=== PATIENT | male | born 2000 | race African-American/Black ===

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

== ENCOUNTER → 2023-04-07 | Emergency (ER) | payer OTHER, SELFPAY ==
[~2023-04-07] MED LIST: ACETAMINOPHEN 325 MG TABLET ONE
--- OUTSIDE RECORDS SUMMARY | 2023-04-07 16:35 | XMS REPORT | Continuity of Care Document ---
Author Name Unknown Address [address] [facility] [address] [place] [address] [facility] Address [address] [facility] [address] [place] [address] Care Team Providers Care Lunchroom Mother Name Role Phone DARREN DOHERTY Primary Care Physician Unavail able RADIOLOGY Attending Clinician Unavailable Radiology Attending Clinician Unavailable NITHYA NELSON Attending Clinician Unavaila Nithya Williamson Attending Clinician [phone] Doctor Unassigned, [place] Attending Clinician U navailable Only, Ang Db Test Attending Clinician Unavailabl e Debbie Fuller Attending Clinician DEBBIE NICHOLS Attending Clinician Unavailable KRISTOFER GALAN Attending Clinician Unavailable Kristofer Sierra Attending Clinician [phone] Howard Her MD Attending Clinician [phone] JOIE OTOOLE Admitting Clinician Unavailable Payers Payer Name Policy Type Policy Number Effective Date Expirati on Date Source [facility] [id number] 2022 00:00:00 [facility] PL[facility] [id number] 2021 00:00:00 Problems Condition Name Condition Details Condition Category Status Onset Date Resolution Date Last Treatment Date Treating Clinician Comments Source 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 Added automatic ally from request for surgery [id number] [facility] Attention deficit hyperactiv ity disorder (ADHD) Attention deficit hyperactiv ity disorder (ADHD) Disease Active 2012-03 00:00: 00 Overview: Formattin g of this note might be different from the original. ICD10 Diagnosis Term [employer] [facility] Sickle cell trait Sickle cell trait Disease Active 12-13 00:00: 00 Overview: Formattin g of this note might be different from the original. NBS with Hgb A, F and S [facility] Thrombocyt openia Thrombocyt openia Disease Active 12-06 00:00: 00 Overview: Formattin g of this note might be different from the original. ICD10 Diagnosis Term [employer] Utility [facility] Thrombocyt openia Thrombocyt openia Disease Active 12-06 00:00: 00 Overview: Formattin g of this note might be different from the original. ICD10 Diagnosis Term [employer] Utility [facility] Allergic rhinitis Allergic rhinitis Disease [facility] 07-28 00:00: 00 Overview: Formattin g of this note might be different from the original. ICD10 Diagnosis Term [employer] Utility [facility] Asthma Asthma Disease [facility] 07-28 00:00: 00 Overview: Formattin g of this note might be different from the original. ICD10 Diagnosis Term [employer] Utility [facility] Contact dermatitis and eczema Contact dermatitis and eczema Disease [facility] 07-28 00:00: 00 Overview: Formattin g of this note might be different from the original. ICD10 Diagnosis Term [employer] Utility [facility] Allergies, Adverse Reactions, Alerts Allergy Name Allergy Type Status Severity Reaction(s) Onset Date Inactive Date Treating Clinician Comments Source NO KNOWN ALLERGIE S Drug Class Active [facility] Social History Social Habit Start Date Stop Date Quantity Comments Source Exposure to SARS-CoV-2 (event) 2022-01-03 00:00:00 2022-01-13 19:51:00 Not sure [facility] Alcohol intake 2019-10-22 00:00:00 2019-10-22 00:00:00 Current non-drinker of alcohol (finding) [facility] Tobacco Comment 2012-07-28 00:00:00 2012-07-28 00:00:00 No smoke exposure [facility] Tobacco use and exposure 2012-07-28 00:00:00 2012-07-28 00:00:00 Smokeless tobacco non-user [facility] Sex Assigned At 2000 00:00:00 2000 00:00:00 [facility] Smoking Status Start Date Stop Date Source Never smoked tobacco [facility] Medications Ordered Medication Name Filled Medication Name Start Date Stop Date Current Medication? Ordering Clinician Indication Dosage Frequency Signature (SIG) Comments Components Source acetaminoph en (TYLENOL) tablet 650 mg 2021-03 01:45: 00 01-14 01:02 :00 No 650mg 650 mg, Oral, ONCE, 1 dose, On Tue01/13/22 at 2045, KAVON [facility] methylpheni date (CONCERTA) 36 mg 24 hr tablet 04-27 00:00: 00 Yes 36mg Take 1 Tab by mouth every morning. [facility] methylpheni date (CONCERTA) 36 mg 24 hr tablet 04-27 00:00: 00 Yes 36mg Take 1 Tab by mouth every morning. [facility] methylpheni date (CONCERTA) 36 mg 24 hr tablet 04-27 00:00: 00 Yes 36mg Take 1 Tab by mouth every morning. [facility] methylpheni date (CONCERTA) 36 mg 24 hr tablet 04-27 00:00: 00 Yes 36mg Take 1 Tab by mouth every morning. [facility] methylpheni date (CONCERTA) 36 mg 24 hr tablet 04-27 00:00: 00 Yes 36mg Take 1 Tab by mouth every morning. [facility] methylpheni date (CONCERTA) 36 mg 24 hr tablet 04-27 00:00: 00 Yes 36mg Take 1 Tab by mouth every morning. [facility] methylpheni date (CONCERTA) 36 mg 24 hr tablet 04-27 00:00: 00 Yes 36mg Take 1 Tab by mouth every morning. [facility] methylpheni date (CONCERTA) 36 mg 24 hr tablet 04-27 00:00: 00 Yes 36mg Take 1 Tab by mouth every morning. [facility] methylpheni date (CONCERTA) 36 mg 24 hr tablet 04-27 00:00: 00 Yes 36mg Take 1 Tab by mouth every morning. [facility] methylpheni date (CONCERTA) 36 mg 24 hr tablet 04-27 00:00: 00 Yes 36mg Take 1 Tab by mouth every morning. [facility] methylpheni date (CONCERTA) 36 mg 24 hr tablet 04-27 00:00: 00 Yes 36mg Take 1 Tab by mouth every morning. [facility] methylpheni date (CONCERTA) 36 mg 24 hr tablet 04-27 00:00: 00 Yes 36mg Take 1 Tab by mouth every morning. [facility] methylpheni date (CONCERTA) 36 mg 24 hr tablet 04-27 00:00: 00 Yes 36mg Take 1 Tab by mouth every morning. [facility] methylpheni date (CONCERTA) 36 mg 24 hr tablet 2012-03 00:00: 00 Yes 36mg Take 1 Tab by mouth every morning. [facility] methylpheni date (CONCERTA) 36 mg 24 hr tablet 2012-03 00:00: 00 Yes 36mg Take 1 Tab by mouth every morning. [facility] methylpheni date (CONCERTA) 36 mg 24 hr tablet 2012-03 00:00: 00 Yes 36mg Take 1 Tab by mouth every morning. [facility] methylpheni date (CONCERTA) 36 mg 24 hr tablet 2012-03 00:00: 00 Yes 36mg Take 1 Tab by mouth every morning. [facility] methylpheni date (CONCERTA) 36 mg 24 hr tablet 2012-03 00:00: 00 Yes 36mg Take 1 Tab by mouth every morning. [facility] methylpheni date (CONCERTA) 36 mg 24 hr tablet 2012-03 00:00: 00 Yes 36mg Take 1 Tab by mouth every morning. [facility] methylpheni date (CONCERTA) 36 mg 24 hr tablet 2012-03 00:00: 00 Yes 36mg Take 1 Tab by mouth every morning. [facility] methylpheni date (CONCERTA) 36 mg 24 hr tablet 2012-03 00:00: 00 Yes 36mg Take 1 Tab by mouth every morning. [facility] methylpheni date (CONCERTA) 36 mg 24 hr tablet 2012-03 00:00: 00 Yes 36mg Take 1 Tab by mouth every morning. [facility] methylpheni date (CONCERTA) 36 mg 24 hr tablet 2012-03 00:00: 00 Yes 36mg Take 1 Tab by mouth every morning. [facility] methylpheni date (CONCERTA) 36 mg 24 hr tablet 2012-03 00:00: 00 Yes 36mg Take 1 Tab by mouth every morning. [facility] methylpheni date (CONCERTA) 36 mg 24 hr tablet 2012-03 00:00: 00 Yes 36mg Take 1 Tab by mouth every morning. [facility] methylpheni date (CONCERTA) 36 mg 24 hr tablet 2012-03 00:00: 00 Yes 36mg Take 1 Tab by mouth every morning. [facility] loratadine (CLARITIN) 10 mg tablet 2012-03 00:00: 00 Yes [id number] 10mg Take 1 Tab by mouth daily. [facility] albuterol (PROAIR HFA) 90 mcg/actuati on inhaler 2012-03 00:00: 00 Yes 2 puffs po q 4-6 hours prn cough, wheeze or shortness of breath. Use with spacer device [facility] hydrocortis one valerate (WESTCORT) 0.2 % ointment 2012-03 00:00: 00 Yes [id number] Apply to eczema bid prn [facility] Guanfacine (INTUNIV) 1 mg Tb24 2012-03 00:00: 00 Yes One po q hs 30 min prior to bed[facility] 10 mg tablet 2012-03 00:00: 00 Yes [id number] 10mg Take 1 Tab by mouth daily. [facility]PRO[facility]IR HFA) 90 mcg/actuati on inhaler 2012-03 00:00: 00 Yes 2 puffs po q 4-6 hours prn cough, wheeze or shortness of breath. Use with spacer device [facility] hydrocortis one valerate (WESTCORT) 0.2 % ointment 2012-03 00:00: 00 Yes [id number] Apply to eczema bid prn [facility] Gu[facility] (INTUNIV) 1 mg Tb24 2012-03 00:00: 00 Yes One po q hs 30 min prior to bedtime [facility] loratadine (CLARITIN) 10 mg tablet 2012-03 00:00: 00 Yes [id number] 10mg Take 1 Tab by mouth daily. [facility] albuterol (PROAIR HFA) 90 mcg/actuati on inhaler 2012-03 00:00: 00 Yes 2 puffs po q 4-6 hours prn cough, wheeze or shortness of breath. Use with spacer device [facility] hydrocortis one valerate (WESTCORT) 0.2 % ointment 2012-03 00:00: 00 Yes [id number] Apply to eczema bid prn [facility] Guanfacine (INTUNIV) 1 mg Tb24 2012-03 00:00: 00 Yes One po q hs 30 min prior to bedtime [facility] loratadine (CLARITIN) 10 mg tablet 2012-03 00:00: 00 Yes [id number] 10mg Take 1 Tab by mouth daily. [facility] (PRO[facility]IR HFA) 90 mcg/actuati on inhaler 2012-03 00:00: 00 Yes 2 puffs po q 4-6 hours prn cough, wheeze or shortness of breath. Use with spacer device [facility] hydrocortis one valerate (WESTCORT) 0.2 % ointment 2012-03 00:00: 00 Yes [id number] Apply to eczema bid prn [facility] Guanfacine (INTUNIV) 1 mg Tb24 2012-03 00:00: 00 Yes One po q hs 30 min prior to bedtime [facility] ([facility]AR[facility]IN) 10 mg tablet 2012-03 00:00: 00 Yes [id number] 10mg Take 1 Tab by mouth daily. [facility] albuterol (PROAIR HFA) 90 mcg/actuati on inhaler 2012-03 00:00: 00 Yes 2 puffs po q 4-6 hours prn cough, wheeze or shortness of breath. Use with spacer device [facility] hydrocortis one valerate (WESTCORT) 0.2 % ointment 2012-03 00:00: 00 Yes [id number] Apply to eczema bid prn [facility] Guanfacine (INTUNIV) 1 mg Tb24 2012-03 00:00: 00 Yes One po q hs 30 min prior to bedtime [facility] loratadine (CLARITIN) 10 mg tablet 2012-03 00:00: 00 Yes [id number] 10mg Take 1 Tab by mouth daily. [facility] albuterol (PROAIR HFA) 90 mcg/actuati on inhaler 2012-03 00:00: 00 Yes 2 puffs po q 4-6 hours prn cough, wheeze or shortness of breath. Use with spacer device [facility] hydrocortis one valerate (WESTCORT) 0.2 % ointment 2012-03 00:00: 00 Yes [id number] Apply to eczema bid prn [facility] Guanfacine (INTUNIV) 1 mg Tb24 2012-03 00:00: 00 Yes One po q hs 30 min prior to bedtime [facility] loratadine (CLARITIN) 10 mg tablet 2012-03 00:00: 00 Yes [id number] 10mg Take 1 Tab by mouth daily. [facility] albuterol (PROAIR HFA) 90 mcg/actuati on inhaler 2012-03 00:00: 00 Yes 2 puffs po q 4-6 hours prn cough, wheeze or shortness of breath. Use with spacer device [facility] hydrocortis one valerate (WESTCORT) 0.2 % ointment 2012-03 00:00: 00 Yes [id number] Apply to eczema bid prn [facility] Guanfacine (INTUNIV) 1 mg Tb24 2012-03 00:00: 00 Yes One po q hs 30 min prior to bedtime [facility] loratadine (CLARITIN) 10 mg tablet 2012-03 00:00: 00 Yes [id number] 10mg Take 1 Tab by mouth daily. [facility] albuterol (PROAIR HFA) 90 mcg/actuati on inhaler 2012-03 00:00: 00 Yes 2 puffs po q 4-6 hours prn cough, wheeze or shortness of breath. Use with spacer device [facility] hydrocortis one valerate (WESTCORT) 0.2 % ointment 2012-03 00:00: 00 Yes [id number] Apply to eczema bid prn [facility] Guanfacine (INTUNIV) 1 mg Tb24 2012-03 00:00: 00 Yes One po q hs 30 min prior to bedtime [facility] loratadine (CLARITIN) 10 mg tablet 2012-03 00:00: 00 Yes [id number] 10mg Take 1 Tab by mouth daily. [facility] albuterol (PROAIR HFA) 90 mcg/actuati on inhaler 2012-03 00:00: 00 Yes 2 puffs po q 4-6 hours prn cough, wheeze or shortness of breath. Use with spacer device [facility] hydrocortis one valerate (WESTCORT) 0.2 % ointment 2012-03 00:00: 00 Yes [id number] Apply to eczema bid prn [facility] Guanfacine (INTUNIV) 1 mg Tb24 2012-03 00:00: 00 Yes One po q hs 30 min prior to bedtime [facility] loratadine (CLARITIN) 10 mg tablet 2012-03 00:00: 00 Yes [id number] 10mg Take 1 Tab by mouth daily. [facility] albuterol (PROAIR HFA) 90 mcg/actuati on inhaler 2012-03 00:00: 00 Yes 2 puffs po q 4-6 hours prn cough, wheeze or shortness of breath. Use with spacer device [facility] hydrocortis one valerate (WESTCORT) 0.2 % ointment 2012-03 00:00: 00 Yes [id number] Apply to eczema bid prn [facility] Guanfacine (INTUNIV) 1 mg 24 2012-03 00:00: 00 Yes One po q hs 30 min prior to bedtime [facility] loratadine (CLARITIN) 10 mg tablet 2012-03 00:00: 00 Yes [id number] 10mg Take 1 Tab by mouth daily. [facility] albuterol (PROAIR HFA) 90 mcg/actuati on inhaler 2012-03 00:00: 00 Yes 2 puffs po q 4-6 hours prn cough, wheeze or shortness of breath. Use with spacer device [facility] hydrocortis one valerate (WESTCORT) 0.2 % ointment 2012-03 00:00: 00 Yes [id number] Apply to eczema bid prn [facility] Guanfacine (INTUNIV) 1 mg Tb24 2012-03 00:00: 00 Yes One po q hs 30 min prior to bedtime [facility] loratadine (CLARITIN) 10 mg tablet 2012-03 00:00: 00 Yes [id number] 10mg Take 1 Tab by mouth daily. [facility] albuterol (PROAIR HFA) 90 mcg/actuati on inhaler 2012-03 00:00: 00 Yes 2 puffs po q 4-6 hours prn cough, wheeze or shortness of breath. Use with spacer device [facility] hydrocortis one valerate (WESTCORT) 0.2 % ointment 2012-03 00:00: 00 Yes [id number] Apply to eczema bid prn [facility] Guanfacine (INTUNIV) 1 mg Tb24 2012-03 00:00: 00 Yes One po q hs 30 min prior to bedtime [facility] loratadine (CLARITIN) 10 mg tablet 2012-03 00:00: 00 Yes [id number] 10mg Take 1 Tab by mouth daily. [facility] albuterol (PROAIR HFA) 90 mcg/actuati on inhaler 2012-03 00:00: 00 Yes 2 puffs po q 4-6 hours prn cough, wheeze or shortness of breath. Use with spacer device [facility] hydrocortis one valerate (WESTCORT) 0.2 % ointment 2012-03 00:00: 00 Yes [id number] Apply to eczema bid prn [facility] Guanfacine (INTUNIV) 1 mg Tb24 2012-03 00:00: 00 Yes One po q hs 30 min prior to bedtime [facility] Guanfacine (INTUNIV) 1 mg Tb24 11-24 00:00: 00 Yes [id number] One po q hs 30 min prior to bedtime [facility] Guanfacine (INTUNIV) 1 mg Tb24 11-24 00:00: 00 Yes [id number] One po q hs 30 min prior to bedtime [facility] Guanfacine (INTUNIV) 1 mg Tb24 11-24 00:00: 00 Yes [id number] One po q hs 30 min prior to bedtime [facility] Guanfacine (INTUNIV) 1 mg Tb24 11-24 00:00: 00 Yes [id number] One po q hs 30 min prior to bedtime [facility]y [facility] Guanfacine (INTUNIV) 1 mg Tb24 11-24 00:00: 00 Yes [id number] One po q hs 30 min prior to bedtime [facility] Guanfacine (INTUNIV) 1 mg Tb24 11-24 00:00: 00 Yes [id number] One po q hs 30 min prior to bedtime [facility] Guanfacine (INTUNIV) 1 mg Tb24 11-24 00:00: 00 Yes [id number] One po q hs 30 min prior to bedtime [facility] Guanfacine (INTUNIV) 1 mg Tb24 11-24 00:00: 00 Yes [id number] One po q hs 30 min prior to bedtime [facility] Guanfacine (INTUNIV) 1 mg Tb24 11-24 00:00: 00 Yes [id number] One po q hs 30 min prior to bedtime [facility] Guanfacine (INTUNIV) 1 mg Tb24 11-24 00:00: 00 Yes [id number] One po q hs 30 min prior to bedtime [facility] Guanfacine (INTUNIV) 1 mg Tb24 11-24 00:00: 00 Yes [id number] One po q hs 30 min prior to bedtime [facility] Guanfacine (INTUNIV) 1 mg Tb24 11-24 00:00: 00 Yes [id number] One po q hs 30 min prior to bedtime [facility] Guanfacine (INTUNIV) 1 mg Tb24 11-24 00:00: 00 Yes [id number] One po q hs 30 min prior to bedtime [facility] hydrocortis one valerate (WESTCORT) 0.2 % ointment 07-31 00:00: 00 Yes [id number] Use on eczema bid prn [facility] albuterol (VENTOLIN) 90 mcg/actuati on inhaler 07-31 00:00: 00 Yes 2 puffs po q 4 hours prn cough/whee ze [facility] loratadine (CLARITIN) 10 mg tablet 07-31 00:00: 00 Yes [id number] One po q day prn nasal allergies [facility] hydrocortis one valerate (WESTCORT) 0.2 % ointment 07-31 00:00: 00 Yes [id number] Use on eczema bid prn [facility] albuterol (VENTOLIN) 90 mcg/actuati on inhaler 07-31 00:00: 00 Yes 2 puffs po q 4 hours prn cough/whee ze [facility] loratadine (CLARITIN) 10 mg tablet 07-31 00:00: 00 Yes [id number] One po q day prn nasal allergies [facility] hydrocortis one valerate (WESTCORT) 0.2 % ointment 07-31 00:00: 00 Yes [id number] Use on eczema bid prn [facility] albuterol (VENTOLIN) 90 mcg/actuati on inhaler 07-31 00:00: 00 Yes 2 puffs po q 4 hours prn cough/whee ze [facility]IN) 10 mg tablet 07-31 00:00: 00 Yes [id number] One po q day prn nasal allergies [facility] hydrocortis one valerate (WESTCORT) 0.2 % ointment 07-31 00:00: 00 Yes [id number] Use on eczema bid prn [facility] albuterol (VENTOLIN) 90 mcg/actuati on inhaler 07-31 00:00: 00 Yes 2 puffs po q 4 hours prn cough/whee ze [facility] loratadine (CLARITIN) 10 mg tablet 07-31 00:00: 00 Yes [id number] One po q day prn nasal allergies [facility] hydrocortis one valerate (WESTCORT) 0.2 % ointment 07-31 00:00: 00 Yes [id number] Use on eczema bid prn [facility] albuterol (VENTOLIN) 90 mcg/actuati on inhaler 07-31 00:00: 00 Yes 2 puffs po q 4 hours prn cough/whee ze [facility] loratadine (CLARITIN) 10 mg tablet 07-31 00:00: 00 Yes [id number] One po q day prn nasal allergies [facility] hydrocortis one valerate (WESTCORT) 0.2 % ointment 07-31 00:00: 00 Yes [id number] Use on eczema bid prn [facility] albuterol (VENTOLIN) 90 mcg/actuati on inhaler 07-31 00:00: 00 Yes 2 puffs po q 4 hours prn cough/whee ze [facility] loratadine (CLARITIN) 10 mg tablet 07-31 00:00: 00 Yes [id number] One po q day prn nasal allergies [facility] hydrocortis one valerate (WESTCORT) 0.2 % ointment 07-31 00:00: 00 Yes [id number] Use on eczema bid prn [facility] albuterol (VENTOLIN) 90 mcg/actuati on inhaler 07-31 00:00: 00 Yes 2 puffs po q 4 hours prn cough/whee ze [facility] loratadine (CLARITIN) 10 mg tablet 07-31 00:00: 00 Yes [id number] One po q day prn nasal allergies [facility] hydrocortis one valerate (WESTCORT) 0.2 % ointment 07-31 00:00: 00 Yes [id number] Use on eczema bid prn [facility] albuterol (VENTOLIN) 90 mcg/actuati on inhaler 07-31 00:00: 00 Yes 2 puffs po q 4 hours prn cough/whee ze [facility] loratadine (CLARITIN) 10 mg tablet 07-31 00:00: 00 Yes [id number] One po q day prn nasal allergies [facility] hydrocortis one valerate (WESTCORT) 0.2 % ointment 07-31 00:00: 00 Yes [id number] Use on eczema bid prn [facility] albuterol (VENTOLIN) 90 mcg/actuati on inhaler 07-31 00:00: 00 Yes 2 puffs po q 4 hours prn cough/whee ze [facility] loratadine (CLARITIN) 10 mg tablet 07-31 00:00: 00 Yes [id number] One po q day prn nasal allergies [facility] hydrocortis one valerate (WESTCORT) 0.2 % ointment 07-31 00:00: 00 Yes [id number] Use on eczema bid prn [facility] albuterol (VENTOLIN) 90 mcg/actuati on inhaler 07-31 00:00: 00 Yes 2 puffs po q 4 hours prn cough/whee ze [facility] loratadine (CLARITIN) 10 mg tablet 07-31 00:00: 00 Yes [id number] One po q day prn nasal allergies [facility] hydrocortis one valerate (WESTCORT) 0.2 % ointment 07-31 00:00: 00 Yes [id number] Use on eczema bid prn [facility] albuterol (VENTOLIN) 90 mcg/actuati on inhaler 07-31 00:00: 00 Yes 2 puffs po q 4 hours prn cough/whee ze [facility] loratadine (CLARITIN) 10 mg tablet 07-31 00:00: 00 Yes [id number] One po q day prn nasal allergies [facility] hydrocortis one valerate (WESTCORT) 0.2 % ointment 07-31 00:00: 00 Yes [id number] Use on eczema bid prn [facility] albuterol (VENTOLIN) 90 mcg/actuati on inhaler 07-31 00:00: 00 Yes 2 puffs po q 4 hours prn cough/whee ze [facility] loratadine (CLARITIN) 10 mg tablet 07-31 00:00: 00 Yes [id number] One po q day prn nasal allergies [facility] hydrocortis one valerate (WESTCORT) 0.2 % ointment 07-31 00:00: 00 Yes [id number] Use on eczema bid prn [facility] albuterol (VENTOLIN) 90 mcg/actuati on inhaler 07-31 00:00: 00 Yes 2 puffs po q 4 hours prn cough/whee ze [facility] loratadine (CLARITIN) 10 mg tablet 07-31 00:00: 00 Yes [id number] One po q day prn nasal allergies [facility] Vital Signs Vital Name Observation Time Observation Value Comments S ource Body temperature 2022-01-14 01:40:00 38.72 [place] [facility] Systolic blood pressure 2022-01-14 00:52:00 121 mm[Hg] [facility] Diastolic blood pressure 2022-01-14 00:52:00 67 mm[Hg] [facility] Heart rate 2022-01-14 00:52:00 106 /min [facility] Respiratory rate 2022-01-14 00:52:00 18 /min [facility] Body height 2022-01-14 00:52:00 170.2 cm [facility] Body weight 2022-01-14 00:52:00 59.875 kg [facility] BMI 2022-01-14 00:52:00 20.67 kg/m2 [facility] Oxygen saturation in Arterial blood by Pulse oximetry 2022-01-14 00:52:00 96 /min [facility] Systolic blood pressure 2019-10-22 18:40:00 122 mm[Hg] [facility] Diastolic blood pressure 2019-10-22 18:40:00 80 mm[Hg] [facility] Heart rate 2019-10-22 18:40:00 64 /min [facility] Body weight 2019-10-22 18:40:00 57.153 kg [facility] Systolic blood pressure 2018-12-15 13:42:00 112 mm[Hg] [facility] Diastolic blood pressure 2018-12-15 13:42:00 75 mm[Hg] [facility] Heart rate 2018-12-15 13:42:00 58 /[facility] 2018-12-15 13:42:00 18 /min [facility] Body height 2018-12-15 13:42:00 161.9 cm [facility] Body weight 2018-12-15 13:42:00 54.885 kg [facility] BMI 2018-12-15 13:42:00 20.93 kg/m2 [facility] Systolic blood pressure 2018-12-15 13:42:00 112 mm[Hg] [facility] [facility] Diastolic blood pressure 2018-12-15 13:42:00 75 mm[Hg] [facility] Heart rate 2018-12-15 13:42:00 58 /[facility] Res[facility] rate 2018-12-15 13:42:00 18 /min [facility] Body height 2018-12-15 13:42:00 161.9 cm [facility] Body weight 2018-12-15 13:42:00 54.885 kg [facility] BMI 2018-12-15 13:42:00 20.93 kg/m2 [facility] Procedures Procedure Date / Time Performed Performing Clinician Source CONSENT/REFUSAL FOR DIAGNOSIS AND TREATMENT 2022-04-08 20:48:36 Doctor Unassigned, [place] [facility] ASSIGNMENT OF BENEFITS 2022-04-08 20:48:15 Docto r Unassigned, [place] [facility] RAPID STREP SCREEN FOR GROUP A 2022-01-14 01:02:00 Leslie [facility] RAPID INFLUENZA A/B 2022-01-14 01:02[facility]APID [facility]) 2022-01-14 01:02:00 Nithya Nelson [facility] NOTICE OF PRIVACY PRACTICES 2022-01-14 00:47:14 Doctor Unassigned, [place] [facility] CONSENT/REFUSAL FOR DIAGNOSIS AND TREATMENT 2022-01-14 00:46:57 Doctor Unassigned, [place] [facility] DME/SUPPLY JUSTIFICATION 2019-10-22 05:01:00 Doc tor Unassigned, [place] [facility] Encounters Start Date/Time End Date/Time Encounter Type Admission Type Attending Clinicians Care Facility Care Department Encounter ID Source 2022-04-16 17:00:00 2022-04-16 17:00:00 Outpatient R RADIOLOGY [facility] RAD [id number] [facility] 2022-04-08 14:48:43 2022-04-08 23:59:00 Outpatient R RADIOLOGY [facility] [id number] [facility] 2022-04-08 14:45:00 2022-04-08 23:59:00 Hospital Encounter Radiology [facility] 1.0.114 350.1.13.10 4.2.7.2.686 [id number] [facility] 2022-01-13 20:03:00 2022-01-13 20:41:00 Emergency X RIDJAMEY [facility] ERT [id number] [facility] 2022-01-13 20:03:00 2022-01-13 20:41:00 [facility] [employer] 1.0.114 350.1.13.10 4.2.7.2.686 [id number] [facility] 2022-01-13 00:00:00 2022-01-13 00:00:00 Orders Only Doctor Unassigned, [place] [facility] 1.0.114 350.1.13.10 4.2.7.2.686 [id number] [facility] 2021-03-28 16:15:00 2021-03-28 16:30:00 Laboratory Only Only, Ang Db Test Debbie Nichols [facility] [id number] 350.1.13.10 4.2.7.2.686 [id number] [facility] 2021-03-28 16:15:00 2021-03-28 16:15:00 Outpatient R DEBBIE NICHOLS [facility] [id number] [facility] 2021-03-28 00:00:00 2021-03-28 00:00:00 Letter (Out) Doctor Unassigned, [place] [facility] [id number] 350.1.13.10 4.2.7.2.686 [id number] [facility] 2019-10-22 14:00:00 2019-10-22 14:00:00 Outpatient R [facility] [id number] [facility] 2019-10-22 13:36:12 2019-10-22 13:51:12 Office Visit [facility] karen[facility] [place] [id number] 350.1.13.10 4.2.7.2.686 [id number] [facility] 2019-10-22 00:00:00 2019-10-22 00:00:00 Letter (Out) [facility] [place]a [place] [id number] 350.1.13.10 4.2.7.2.686 [id number] [facility] 2019-10-22 00:00:00 2019-10-22 00:00:00 Orders Only Doctor Unassigned, [place] [facility] [id number] 350.1.13.10 4.2.7.2.686 [id number] [facility] 2019-08-28 00:00:00 2019-08-28 00:00:00 Telephone [facility] karena [place] [id number] 350.1.13.10 4.2.7.2.686 [id number] [facility] 2018-12-15 08:35:01 2018-12-15 08:53:59 Office Visit [facility] [place] 1.2.840.114 350.1.13.10 4.2.7.2.686 [id number] 2018-12-15 08:35:01 2018-12-15 08:53:59 Office Visit [facility] karena [place] 1.2.840.114 350.1.13.10 4.2.7.2.686 [id number] [facility] 2018-12-15 00:00:00 2018-12-15 00:00:00 Telephone [facility] [place] 1.2.840.114 350.1.13.10 4.2.7.2.686 [id number] 2018-12-15 00:00:00 2018-12-15 00:00:00 Telephone [facility] [place] 1.2.840.114 350.1.13.10 4.2.7.2.686 [id number] [facility]
[2023-04-07 17:45] LABS: SARS-CoV-2 Antigen Rapid Res Positive (Negative)
--- NOTE | 2023-04-07 19:40 | EDPHYS ---
Physician Documentation [facility] Name: Rohit Tesfaye Age: 22 yrs Sex: Male : 2000 Arrival Date: 04/07/2023 Time: 16:31 Bed DIS3 Private MD: ED Physician Sia Cope HPI: 04/07 17:10 This 22 yrs old Black Male presents to ER via Ambulatory with complaints of Flu cp Symptoms. 17:10 The patient or guardian reports cough, that is intermittent. cp 17:10 Onset: The symptoms/episode began/occurred 4 day(s) ago. Associated signs and symptoms: cp Pertinent positives: sore throat, body aches, Pertinent negatives: fever. Historical: - Allergies: 17:01 No Known Allergies; nj1 - PMHx: 17:01 ADD/ADHD; Asthma; nj1 - Immunization history:: Client reports receiving the 2nd dose of the Covid vaccine. - Social history:: Smoking status: Reported history of juuling and/or vaping. ROS: 17:10 Constitutional: Positive for body aches, cp 17:10 Eyes: Negative for injury, pain, redness, and discharge, cp 17:10 ENT: Positive for sore throat, Negative for drainage from ear(s), ear pain, 17:10 Respiratory: Positive for cough, Negative for shortness of breath, wheezing, 17:10 Abdomen/GI: Negative for abdominal pain, vomiting, diarrhea, constipation, 17:10 Neuro: Negative for altered mental status, weakness, 17:10 All other systems are negative, Exam: 17:15 Constitutional: The patient appears in no acute distress, alert, awake, non-toxic, well cp developed, well nourished, 17:15 Head/Face: Normocephalic, atraumatic. cp 17:15 Eyes: Periorbital structures: appear normal, Conjunctiva: normal, no exudate, no injection, Lids and lashes: appear normal, bilaterally, 17:15 ENT: External ear(s): are unremarkable, Ear canal(s): are normal, clear, TM's: dullness, bilaterally, Nose: is normal, Mouth: Lips: moist, Oral mucosa: pink and intact, moist, Posterior pharynx: Airway: no evidence of obstruction, patent, Tonsils: no enlargement, no exudate, erythema, that is mild, exudate, is not appreciated, 17:15 Neck: ROM/movement: is normal, is supple, without pain, no range of motions limitations, no meningismus, Lymph nodes: no appreciated lymphadenopathy, 17:15 Chest/axilla: Inspection: normal, 17:15 Cardiovascular: Rate: normal, Rhythm: regular, 17:15 Respiratory: the patient does not display signs of respiratory distress, Respirations: normal, no use of accessory muscles, no retractions, labored breathing, is not present, Breath sounds: are clear throughout, no decreased breath sounds, no stridor, no wheezing, 17:15 Abdomen/GI: Inspection: abdomen appears normal, Palpation: abdomen is soft and non-tender, in all quadrants, Vital Signs: 16:55 BP 120 / 88; Pulse 73; Resp 18; Temp 100; Pulse Ox 100% on R/A; Weight 63.5 kg; Height nj1 5 ft. 8 in. ; 16:55 Body Mass Index 21.29 (63.50 kg, 172.72 cm) [facility] MDM: 17:14 Patient medically screened. cp 18:00 Differential diagnosis: bronchitis, flu, URI. cp 19:38 Data reviewed: vital signs, nurses notes, lab test result(s). cp 19:38 Counseling: I had a detailed discussion with the patient and/or guardian regarding the cp historical points, exam findings, and any diagnostic results supporting the discharge/admit diagnosis, lab results, to return to the emergency department if symptoms worsen or persist or if there are any questions or concerns that arise at home. 04/07 16:59 Order name: Strep cp 04/07 17:10 Order name: SARS RAPID; Complete Time: 19:32 [facility] 04/07 19:32 Interpretation: Reviewed. cp 04/07 17:10 Order name: Influenza Screen (a \T\ B); Complete Time: 19:32 [facility] 04/07 17:46 Order name: Throat Culture EDMS Administered Medications: 17:02 Drug: Acetaminophen PO 650 mg PO once Route: PO; nj1 Disposition Summary: 04/07/23 19:39 Discharge Ordered Notes: Location: Home cp Problem: new cp Symptoms: are unchanged cp Condition: Stable cp Diagnosis - SARS-associated coronavirus as the cause of diseases classified elsewhere cp Followup: cp - With: Private Physician - When: 1 - 2 days - Reason: Worsening of condition Discharge Instructions: - Discharge Summary Sheet cp - Form - Excuse from Work, School, or Physical Activity cp - COVID-19 cp - How to Protect Yourself and Others - [facility] (05/22/2021) cp - 10 Things You Can Do to Manage Your COVID-19 Symptoms at Home - [facility] (10/10/2020) cp - COVID-19: Quarantine and Isolation - [facility] (06/24/2021) cp - COVID-19: What to Do If You Are Sick - [facility] (06/16/2021) cp Forms: - Medication Reconciliation Form cp - Thank You Letter cp - Antibiotic Education cp - Prescription Opioid Use cp - Patient Portal Instructions cp - Leadership Thank You Letter cp - Work release form jb4 Prescriptions: - Bromfed DM 2-30-10 mg/5 mL Oral syrup - administer 10 milliliter ORAL route every 6 hours as needed for cough; 240 cp milliliter; Refills: 0, Product Selection Permitted - Ibuprofen 800 mg Oral Tablet - take 1 tablet ORAL route every 8 hours As needed take with food; 30 tablet; cp Refills: 0, Product Selection Permitted Signatures: Dispatcher [employer] EDMS Javed Schmid PA PA cp Tessie Seaman RN RN nj1 Corrections: (The following items were deleted from the chart) 04/08 19:47 19:46 Constitutional: Positive for body aches, cp cp
--- NOTE | 2023-04-07 19:40 | ER ---
Nurse's Notes [facility] Name: Rohit Tesfaye Age: 22 yrs Sex: Male : 2000 Arrival Date: 04/07/2023 Time: 16:31 Bed DIS3 Private MD: Diagnosis: SARS-associated coronavirus as the cause of diseases classified elsewhere Presentation: 04/07 16:55 Chief complaint: Patient states: body aches, runny nose, sore throat, cough for a week, nj1 got worse yesterday. Denies fever. Coronavirus screen: Vaccine status: Patient reports receiving the 2nd dose of the covid vaccine. Ebola Screen: Patient denies travel to an Ebola-affected area in the 21 days before illness onset. Initial Sepsis Screen: Does the patient meet any 2 criteria? No. Patient's initial sepsis screen is negative. Does the patient have a suspected source of infection? No. Patient's initial sepsis screen is negative. Risk Assessment: Do you want to hurt yourself or someone else? Patient reports no desire to harm self or others. Onset of symptoms was April 04, 2023. 16:55 Acuity: JESUS 4 nj1 16:55 Method Of Arrival: Ambulatory nj1 Historical: - Allergies: 17:01 No Known Allergies; nj1 - PMHx: 17:01 ADD/ADHD; Asthma; nj1 - Immunization history:: Client reports receiving the 2nd dose of the Covid vaccine. - Social history:: Smoking status: Reported history of juuling and/or vaping. Screenin:02 [facility] ED Fall Risk Assessment (Adult) History of falling in the last 3 months, jb4 including since admission No falls in past 3 months (0 pts) Confusion or Disorientation No (0 pts). Abuse screen: Denies threats or abuse. Nutritional screening: No deficits noted. Tuberculosis screening: No symptoms or risk factors identified. Assessment: 20:02 General: Appears in no apparent distress. comfortable, Behavior is calm, cooperative, jb4 appropriate for age. Pain: Denies pain. Neuro: Level of Consciousness is awake, alert, obeys commands, Oriented to person, place, time, situation. Cardiovascular: Patient's skin is warm and dry. Respiratory: Airway is patent Respiratory effort is even, unlabored, Respiratory pattern is regular, symmetrical. GI: No signs and/or symptoms were reported involving the gastrointestinal system. : No signs and/or symptoms were reported regarding the genitourinary system. EENT: No signs and/or symptoms were reported regarding the EENT system. Derm: Skin is intact, Skin is pink, warm \T\ dry. Musculoskeletal: Circulation, motion, and sensation intact. Range of motion: intact in all extremities. Vital Signs: 16:55 BP 120 / 88; Pulse 73; Resp 18; Temp 100; Pulse Ox 100% on R/A; Weight 63.5 kg; Height nj1 5 ft. 8 in. ; 16:55 Body Mass Index 21.29 (63.50 kg, 172.72 cm) nj1 ED Course: 16:36 Patient arrived in ED. mg5 16:47 Javed Schmid PA is PHCP. cp 16:47 Sia Cope MD is Attending Physician. cp 17:01 Triage completed. nj1 17:02 Arm band placed on left wrist. nj1 20:02 Patient has correct armband on for positive identification. jb4 20:02 No provider procedures requiring assistance completed. Patient did not have IV access jb4 during this emergency room visit. Administered Medications: 17:02 Drug: Acetaminophen PO 650 mg PO once Route: PO; nj1 Outcome: 19:39 Discharge ordered by MD. cp 20:02 Discharged to home ambulatory, jb4 20:02 Condition: stable 20:02 Discharge instructions given to patient, Instructed on discharge instructions, follow up and referral plans. medication usage, Demonstrated understanding of instructions, follow-up care, medications, Prescriptions given X 2, 20:03 Patient left the ED. jb4 Signatures: Javed Schmid PA PA cp Bryson, James, RN RN jb4 Tessie Seaman RN RN nj Tung Monie mg5
[2023-04-08 01:02] VITALS: BP 120/88; TEMP 100; O2SAT 100
== END ==
LOC: ER 16:31
DX: U07.1 COVID-19 (principal)
CPT/HCPCS: 36415; 87070; 87081; 87804; 87811; 99283